=== PATIENT | female | born 1935 | race Caucasian/White ===

== ENCOUNTER → 2018-03-24 | Outpatient (CLI) | payer OTHER ==
--- NOTE | 2018-03-24 16:32 | RAD ---
CT of the chest without contrast 03/24/2018 INDICATION: Lung nodule. COMPARISON STUDY: None available. FINDINGS: Most dissector CT imaging of the chest was performed without the administration of IV contrast. Scattered small mediastinal lymph nodes are noted without pathologic enlargement. No significant pericardial effusion is identified. Coronary calcification is seen. There is a 1.1 cm nodular opacity in the right breast. No pneumothorax or pleural effusion is seen. No focal consolidative infiltrate is identified. There is a 3 mm noncalcified nodule in the left upper lobe (axial image 124). There is also a 4 mm subpleural nodule in the left upper lobe along the fissure (axial image 95).There is ill-defined groundglass nodule in the right upper lobe measuring 3 mm in diameter (axial image 42). There is a 1 to 2 mm nodule in the more inferior right upper lobe (axial image 81). Limited visualization of the after abdomen demonstrates a somewhat poorly delineated partially calcified nodular foci in the right wall the distal stomach. The appearance is nonspecific and limited without IV and oral contrast. Consider CT of the abdomen for further evaluation. A large hiatal hernia is seen. No evidence of acute osseous abnormality is seen. Degenerative changes of the thoracic spine are noted. IMPRESSION: 1. Multiple sub-5 mm pulmonary nodules as described above. CT surveillance recommended 2. Nonspecific partially calcified nodular lesion in the right all the distal stomach. CT of the abdomen with IV and oral contrast recommended. 3. 1.1 cm nodule in the right breast. Intramammary lymph node is possible. Small mass cannot be excluded. Recommend correlation with mammography. 4. Large hiatal hernia CT DOSING PQRS STATEMENT: One or more of the following individualized dose reduction techniques were utilized for this examination: 1. Automated exposure control 2. Adjustment of the mA and/or kV according to patient size 3. Use of iterative reconstruction technique Electronically signed by: Al Olivera MD (03/24/2018 4:28 PM) [id number]
== END | disposition home or self-care (01) ==
LOC: CT 09:39
PROVIDERS: ATTEND Internal Medicine Critical Care Medicine
DX: R91.1 Solitary pulmonary nodule (principal); I25.10 Atherosclerotic heart disease of native coronary artery without angina pectoris; K44.9 Diaphragmatic hernia without obstruction or gangrene
CPT/HCPCS: 71250

== ENCOUNTER → 2018-10-13 | Outpatient (CLI) | payer MEDICARE, OTHER ==
--- NOTE | 2018-10-13 12:05 | RAD ---
CT of the chest without contrast, 10/13/2018: HISTORY: Follow-up pulmonary nodules Noncontrast scans were obtained and compared to a study from 03/24/2018. A 4 mm perifissural nodule in the left upper lobe seen on image 99 of series #2 is unchanged. A very tiny groundglass opacity seen laterally in the right upper lobe on image 50 of series #2 is also unchanged. A tiny nodule seen laterally in the right upper lobe on image 87 of series #2 is also unchanged. A minimal linear opacity in the inferior lingula is unchanged and is likely a scar. A few other scattered linear parenchymal opacities are compatible with scars. No pulmonary mass or significant consolidation has developed. No pleural fluid is seen. There is moderate calcific plaquing of the thoracic aorta without evidence of aneurysm. Moderate scattered coronary artery calcifications are present. No mediastinal adenopathy is evident. There is a moderate sized hiatal hernia. A calcific density is again noted in the medial wall of the stomach, unchanged. IMPRESSION: 1. Stable very tiny pulmonary nodules. 2. Moderate coronary artery disease. 3. Moderate sized hiatal hernia. 4. Unchanged small right breast nodule. 5. No new chest abnormality is detected. PQRS Compliance Statement: One or more of the following individualized dose reduction techniques were utilized for this examination: 1. Automated exposure control 2. Adjustment of the mA and/or kV according to patient size 3. Use of iterative reconstruction technique A 1.1 cm right breast nodule is unchanged. Mammographic evaluation and surveillance is suggested. Electronically signed by: Lauro Garcia MD (10/13/2018 12:02 PM) [facility]
== END | disposition home or self-care (01) ==
LOC: CT 10:00
PROVIDERS: ATTEND Internal Medicine Critical Care Medicine
DX: R91.8 Other nonspecific abnormal finding of lung field (principal); I25.10 Atherosclerotic heart disease of native coronary artery without angina pectoris; K44.9 Diaphragmatic hernia without obstruction or gangrene; N63.10 Unspecified lump in the right breast, unspecified quadrant
CPT/HCPCS: 71250

== ENCOUNTER → 2020-05-27 | Outpatient (CLI) | payer MEDICARE ==
--- NOTE | 2020-05-27 17:26 | RAD ---
EXAM: Chest CT without intravenous contrast. HISTORY: Pulmonary nodule follow-up. TECHNIQUE: Computed tomographic images of the chest were obtained without contrast. Multiplanar reformatting was performed. *One or more of the following individualized dose reduction techniques were utilized for this examination: 1. Automated exposure control. 2. Adjustment of the mA and/or kV according to patient size. 3. Use of iterative reconstruction technique. COMPARISON: 10/13/2018 and 03/24/2018. FINDINGS: The heart is normal in size. There is calcified atherosclerotic plaque involving the aorta, aortic arch great vessels and coronary arteries. There are nonspecific mediastinal and hilar lymph nodes. There is stable slight inferior nodular extension of the left aspect of the thyroid isthmus. No discrete nodule is seen. There is no infiltrate, pleural effusion or pneumothorax. There is posterior dependent and basilar atelectasis. There is a new 3 mm nodule within the superior segment of the right lower lobe processes series 3, image 123). There is a stable 2 mm nodule within the superior segment of the right lower lobe processes series 3, image 126). There is 3 mm nodule along the superior aspect of the left major fissure (series 3, image 90), likely a fissural lymph node. There is a moderate hiatal hernia. There is no suspicious osseous lesion. IMPRESSION: 1. Several tiny benign-appearing pulmonary nodules, the largest of which measure 3 mm. Follow-up can performed in one year if there are risk factors for pulmonary neoplasm. The largest 3 mm nodule within the right lower lobe is new compared to the prior study. The additional nodules are stable for a greater than two-year interval. 2. No acute thoracic finding. Electronically signed by: Karly Grossman MD (05/27/2020 5:23 PM) [facility]
== END ==
LOC: CT 16:49
PROVIDERS: ATTEND Internal Medicine Critical Care Medicine
DX: J98.11 Atelectasis (principal); I25.10 Atherosclerotic heart disease of native coronary artery without angina pectoris; I70.0 Atherosclerosis of aorta; K44.9 Diaphragmatic hernia without obstruction or gangrene; R91.1 Solitary pulmonary nodule
CPT/HCPCS: 71250